=== PATIENT | male | born 1960 | race Caucasian/White ===

== ENCOUNTER → 2017-04-12 | Outpatient (CLI) | payer OTHER ==
[2017-04-12 13:17] LABS: ESTIMATED AVERAGE GLUCOSE 114 mg/dl; HA1C FLAG Normal (Normal)
[2017-04-12 14:28] LABS: ALT/SGPT 53 U/L (12-78); AST/SGOT 26 U/L (15-37); BLOOD UREA NITROGEN 13 mg/dl (7-18); BUN/CREATININE RATIO 13.8 (10-20); CALCIUM 9.1 mg/dl (8.5-10.1); CARBON DIOXIDE 29 mmol/L (21-32); CHLORIDE 105 mmol/L (98-107); CHOLESTEROL 174 mg/dl (0-200); CREATININE 0.93 mg/dl (0.60-1.40); GLUCOSE 96 mg/dl (70-99); POTASSIUM 4.4 mmol/L (3.5-5.1); SODIUM 139 mmol/L (136-145)
[2017-04-12 14:31] LABS: ALB/GLOB RATIO 1.3 (0.9-2); ALKALINE PHOSPHATASE 105 U/L (45-117); CHOLESTEROL/HDL RATIO 3.2; HDL CHOLESTEROL 55 mg/dl; LDL CHOLESTEROL CALCULATED 79 mg/dl; TRIGLYCERIDES 200 mg/dl (0-150); VERY LOW DENSITY LIPOPROT CALC 40 mg/dl
== END | disposition home or self-care (01) ==
LOC: C.LABBFT 08:05
PROVIDERS: ATTEND Internal Medicine
DX: R94.5 Abnormal results of liver function studies (principal)

== ENCOUNTER → 2017-07-20 | Outpatient (CLI) | payer BC, OTHER ==
[~2017-07-20] VITALS: Ht 185.4 cm; Wt 127.7 kg
[2017-07-20 13:55] VITALS: BP 158/92; PULSE 64; Ht 185.4 cm; Wt 127.7 kg
== END | disposition home or self-care (01) ==
LOC: C.NEUR 13:00
PROVIDERS: ATTEND Internal Medicine Pulmonary Disease
DX: G47.33 Obstructive sleep apnea (adult) (pediatric) (principal); E66.9 Obesity, unspecified; Z68.37 Body mass index [BMI] 37.0-37.9, adult

== ENCOUNTER → 2017-12-06 | Outpatient (CLI) | payer BC ==
[2017-12-06 12:41] LABS: BASO % 1.1 %; BASO ABS # 0.05 K/uL (0-0.2); EOS % 4.6 %; IG# 0.01 K/uL (0.00-0.02); LYMPH ABS # 1.66 K/uL (1.2-3.4); MEAN CELL VOLUME 89.2 fL (80-100); MEAN CORPUSCULAR HEMOGLOBIN 30.4 pg (25-34); MEAN CORPUSCULAR HGB CONC 34.1 g/dl (32-36); MEAN PLATELET VOLUME 9.3 fL (7.4-10.4); MONO % 8.9 %; MONO ABS # 0.39 K/uL (0.11-0.59); NEUT % 47.2 %; NEUT ABS # 2.06 K/uL (1.4-6.5); PLATELET COUNT 180 K/uL (130-400); RED CELL DISTRIBUTION WIDTH CV 13.6 % (11.5-14.5); RED CELL DISTRIBUTION WIDTH SD 44.3 fL (36.4-46.3); WHITE BLOOD COUNT 4.37 K/uL (4.8-10.8)
[2017-12-06 13:30] LABS: HEMOGLOBIN A1C 5.8 % (4.5-5.6)
[2017-12-06 13:46] LABS: ALBUMIN 4.2 gm/dl (3.4-5.0); ALT/SGPT 81 U/L (12-78); AST/SGOT 36 U/L (15-37); BLOOD UREA NITROGEN 17 mg/dl (7-18); CALCIUM 8.9 mg/dl (8.5-10.1); CARBON DIOXIDE 27 mmol/L (21-32); CREATININE 1.08 mg/dl (0.60-1.40); GLUCOSE 100 mg/dl (70-99); POTASSIUM 4.1 mmol/L (3.5-5.1); SODIUM 140 mmol/L (136-145)
[2017-12-06 13:48] LABS: ALKALINE PHOSPHATASE 93 U/L (45-117); CHOLESTEROL 182 mg/dl (0-200); LDL CHOLESTEROL CALCULATED 111 mg/dl; TOTAL PROTEIN 7.8 gm/dl (6.4-8.2)
== END | disposition home or self-care (01) ==
LOC: C.LABBFT 08:42
PROVIDERS: ATTEND Internal Medicine
DX: I10 Essential (primary) hypertension (principal); E78.5 Hyperlipidemia, unspecified; R73.9 Hyperglycemia, unspecified

== ENCOUNTER → 2018-05-30 | Outpatient (CLI) | payer BC ==
[2018-05-30 17:50] LABS: ALBUMIN 4.2 gm/dl (3.4-5.0); ALKALINE PHOSPHATASE 98 U/L (45-117); ALT/SGPT 58 U/L (12-78); AST/SGOT 28 U/L (15-37); BLOOD UREA NITROGEN 14 mg/dl (7-18); CALCIUM 8.9 mg/dl (8.5-10.1); CARBON DIOXIDE 25 mmol/L (21-32); CHOLESTEROL 131 mg/dl (0-200); CREATININE 0.94 mg/dl (0.60-1.40); GLUCOSE 89 mg/dl (70-99); LDL CHOLESTEROL CALCULATED 55 mg/dl; POTASSIUM 3.6 mmol/L (3.5-5.1); SODIUM 137 mmol/L (136-145); TOTAL PROTEIN 7.8 gm/dl (6.4-8.2)
[2018-05-30 18:22] LABS: BASO % 0.8 %; BASO ABS # 0.04 K/uL (0-0.2); EOS % 2.7 %; EOS ABS # 0.14 K/uL (0-0.5); HEMOGLOBIN 14.7 g/dL (14.0-18.0); IG# 0.01 K/uL (0.00-0.02); LYMPH ABS # 1.79 K/uL (1.2-3.4); MEAN CELL VOLUME 89.6 fL (80-100); MEAN CORPUSCULAR HEMOGLOBIN 30.6 pg (25-34); MEAN CORPUSCULAR HGB CONC 34.2 g/dl (32-36); MEAN PLATELET VOLUME 9.3 fL (7.4-10.4); MONO % 7.8 %; NEUT % 53.5 %; NEUT ABS # 2.73 K/uL (1.4-6.5); PLATELET COUNT 205 K/uL (130-400); RED CELL DISTRIBUTION WIDTH CV 13.9 % (11.5-14.5); RED CELL DISTRIBUTION WIDTH SD 45.5 fL (36.4-46.3); WHITE BLOOD COUNT 5.11 K/uL (4.8-10.8)
== END | disposition home or self-care (01) ==
LOC: C.LABBFT 12:04
PROVIDERS: ATTEND Internal Medicine
DX: N52.9 Male erectile dysfunction, unspecified (principal); I10 Essential (primary) hypertension; R79.89 Other specified abnormal findings of blood chemistry; E78.5 Hyperlipidemia, unspecified; D72.819 Decreased white blood cell count, unspecified

== ENCOUNTER 2020-06-14 09:48 | Inpatient (IN) ==
[2020-06-14] MEDS ORDERED: cefTRIAXone SODIUM 2,000 MG/70 ML BAG IV STA (11:12)
--- NOTE | 2020-06-14 11:17 | Emergency Department Note ---
Impression & Plan Cellulitis, Abscess, Fever ED Provider Note NAME: GARRETT ONEILL AGE: 59 SEX: M : 1960 ARRIVES VIA: Walk-In INFORMANT: Patient ED PROVIDER(S): David Proctor DO CHIEF COMPLAINT: Boil of right groin HPI: Patient is a 59-year-old male who presents the ER for fevers and right groin pain which has been present since Wednesday. The redness and the swelling has been getting significantly worse. Was seen via telehealth and placed on Bactrim. Took Bactrim for 2 days. Fevers as high as 102 Wednesday and . Patient denies any headache, cough runny nose. No loss of taste or smell. No chest pain or shortness of breath. No dysuria urgency or frequency. notes that the redness has been getting significantly worse since this started. ROS: See above HPI for pertinent positives & negatives. A total of 10 systems reviewed and were otherwise negative. PAST MEDICAL HISTORY:See Below PAST SURGICAL HISTORY:See Below FAMILY HISTORY:See Below SOCIAL HISTORY:See Below HOME MEDICATIONS:See Below ALLERGIES:See Below VITALS:See Below PHYSICAL EXAMINATION: GENERAL: Sitting up in bed, alert, well appearing, well nourished, no distress, non-toxic EYE EXAM: normal conjunctiva. OROPHARYNX: no exudate, no erythema, lips, buccal mucosa, and tongue normal and mucous membranes are moist NECK: supple, no nuchal rigidity, no adenopathy, non-tender LUNGS: Clear to auscultation. Normal chest wall mechanics HEART: no murmurs, S1 normal and S2 normal ABDOMEN: abdomen soft, non-tender, normo-active bowel sounds, no masses, no rebound or guarding. BACK: Back is symmetrical on inspection and there is no deformity, no midline tenderness, no CVA tenderness. SKIN: no rashes and no bruising UPPER EXTREMITIES: upper extremities are grossly normal. LOWER EXTREMITIES: Large abscess in the right groin with surrounding erythema tracking down to the right mid thigh and right Lower abdomen NEURO EXAM: Normal sensorium, cranial nerves II-XII grossly intact, normal speech, no gross weakness of arms, no gross weakness of legs. MEDICAL DECISION MAKING: Patient is a 59-year-old male who presents the ER with fevers that have been present for the past 2 days with high of 102. Complaining of her right groin pain and on exam has a clear abscess with surrounding cellulitis. Bedside ultrasound performed by myself shows focal abscess which is draining. Large amount of surrounding cellulitis. IV was established blood work was obtained.Labs show no significant leukocytosis or anemia. BMP with LFTs bilirubin and lipase was unremarkable. Patient had been on Bactrim as an outpatient for nearly 2 days. Redness was worsening. With fevers, worsening redness clear abscess I did remove a large amount of pus from the abscess by squeezing/applying pressure. Patient tolerated this well. He was given 2 g of IV Rocephin along with IV fluids. Updated bedside. Discussed with hospitalist for admission. Triage Nursing notes reviewed. Prior medical records reviewed Vital Signs: reviewed and remarkable for no significant abnormalities Differential diagnosis: Cellulitis, abscess, MRSA infection, DVT, necrotizing fasciitis, dermatitis, drug eruption, allergic reaction, as well as other pathologies. ER treatment provided: See below Diagnostics interpreted by me: ECG: none Cardiac Monitoring: An order was placed for continuous cardiac monitoring. The monitor shows a rate of 85 with sinus rhythm. Laboratory studies: As stated above and show below. Imaging studies: Bedside ultrasound performed by myself showed a small focal abscess which was draining on exam Consultation(s): Janes with hospitalist for admission. ED COURSE: Procedures: none Critical Care: None Past Med/Surg History Medical History (Updated 06/14/20 @ 17:16 by David Proctor DO) Pneumonia Surgical History (Updated 11/08/19 @ 08:57 by Brea Monson) History of elbow surgery History of left knee surgery History of shoulder surgery right Family History (Updated 11/08/19 @ 09:31 by Que Denson MD) Father Cancer Unknown origin Denies family history of Ovarian cancer Prostate cancer Myocardial infarction Breast cancer Colorectal cancer Social History (Updated 11/08/19 @ 09:32 by Que Denson MD) Smoking Status: Former smoker Age Started Using Tobacco: 17; Age Quit Using Tobacco: 30; Cigarettes Per Day: patient did smoke daily. Used occasionally for 6 months; Number of Years Since Quit: 29; Second Hand Exposure: No; Tobacco Cessation Education Requested by Patient: No Hx Alcohol Use: Yes Alcohol type: beer Alcohol Intake Frequency Comment: A pproximately 6 pack of beer per week Hx Substance Use: No Preferred Language: Yoruba Communication Ability: Effective Visual Impairment: No Limitations Hearing Ability: Normal Beliefs That Will Affect Care: None marital status: Current Living Situation: Spouse current occupational status: employed Other Information That Helps Us Care for You: No Feels Safe at Home: Yes Safety Concerns: Feels Safe At This Time Childhood Exposure to Second-Hand Smoke: Yes Dental Care, Regularly: Yes Physical Activity Frequency: 3-4 Times per Week Allergies Allergies Allergy/AdvReac Type Severity Reaction Status Date / Time No Known Drug Allergies Allergy . Verified 06/14/20 12:52 Home Meds Home Medications Medication Instructions Recorded Confirmed aspirin 81 mg tablet,delayed 81 mg PO QAM 11/08/19 06/14/20 release acetaminophen [Tylenol Extra 1,000 mg PO Q6H PRN 06/14/20 06/14/20 Strength] hydrochlorothiazide 25 mg PO QAM 06/14/20 06/14/20 irbesartan 300 mg PO QAM 06/14/20 06/14/20 tadalafil [Cialis] 20 mg PO PM PRN 06/14/20 06/14/20 vit C-vit [id number]-[id number]-om-3 1 cap PO QAM 06/14/20 06/14/20 [Ocuvite] Previous Rx's Medication Instructions Recorded atorvastatin 20 mg tablet 20 mg PO HS #90 tab 06/03/20 sulfamethoxazole 800 1 tab PO BID #14 tab 06/13/20 mg-trimethoprim 160 mg tablet Results & Data (ED) Vital Signs Vital Signs - 24 hr 06/14/20 10:04 06/14/20 11:33 06/14/20 13:01 Temperature 37.1 C Temperature Source Oral Pulse Rate 84 Pulse Rate [Apical] 80 78 Respiratory Rate 20 24 20 Blood Pressure 149/79 H Blood Pressure [Left Arm] 134/79 131/87 Blood Pressure Mean 102 Blood Pressure Mean [Left Arm] 97 101 Pulse Oximetry 99 97 97 Oxygen Delivery Method Room Air Room Air Room Air Sepsis Recent Fever Within 48 Hours No Sepsis New/Unexplained Change in Mental Status No Sepsis Action Taken by Nursing No Action Required Laboratory Data Result diagrams: 06/14/20 11:25 06/14/20 11:25 Lab Results 06/14/20 06/14/20 Range/Units 11:25 11:25 WBC 8.43 (4.8-10.8) K/uL RBC 4.65 L (4.7-6.1) M/uL Hgb 14.0 (14.0-18.0) g/dL Hct 41.5 L (42-52) % MCV 89.2 (80-100) fL MCH 30.1 (25-34) pg MCHC 33.7 (32-36) g/dL RDW Std Deviation 45.3 (36.4-46.3) fL RDW Coeff of Nelson 13.8 (11.5-14.5) % Plt Count 185 (130-400) K/uL MPV 9.0 (7.4-10.4) fL Immature Gran % (Auto) 0.2 % Neut % (Auto) 76.8 % Lymph % (Auto) 13.8 % Hart % (Auto) 8.7 % Eos % (Auto) 0.4 % Baso % (Auto) 0.1 % Neut # (Auto) 6.48 (1.4-6.5) K/uL Lymph # (Auto) 1.16 L (1.2-3.4) K/uL Hart # (Auto) 0.73 H (0.11-0.59) K/uL Eos # (Auto) 0.03 (0-0.5) K/uL Baso # (Auto) 0.01 (0-0.2) K/uL Immature Gran # (Auto) 0.02 (0.00-0.02) K/uL Sodium 139 (136-145) mmol/L Potassium 3.8 (3.5-5.1) mmol/L Chloride 105 (98-107) mmol/L Carbon Dioxide 27 (21-32) mmol/L Anion Gap 7.0 (3-11) BUN 14 (7-18) mg/dl Creatinine 1.03 (0.6-1.4) mg/dl Est Cr Clr Drug Dosing 110.1 ml/min Est GFR ( Amer) 91.7 Est GFR (Non-Af Amer) 79.1 BUN/Creatinine Ratio 13.7 (10-20) Glucose 117 H (70-99) mg/dl Calcium 9.2 (8.5-10.1) mg/dl Total Bilirubin 0.7 (0.2-1) mg/dl AST 15 (15-37) U/L ALT 32 (12-78) U/L Alkaline Phosphatase 82 (45-117) U/L Total Protein 7.9 (6.4-8.2) gm/dl Albumin 3.8 (3.4-5.0) gm/dl Globulin 4.1 H (2.5-4.0) gm/dl Albumin/Globulin Ratio 0.9 (0.9-2) Lipase 87 (73-393) U/L Administered Medications Discontinued Medications Ceftriaxone Sodium (Rocephin) 2,000 mg in 70 mls @ 140 mls/hr IV NOW STA Stop: 06/14/20 11:41 Last Infusion: 06/14/20 11:58 Dose: 0 mls/hr Documented by: [id number] Admin: 06/14/20 11:28 Dose: 140 mls/hr Documented by: [id number] Piperacillin Sod/Tazobactam (Sod 4.5 gm/ Dextrose) 120 mls @ 200 mls/hr IV 1430 ONE; Protocol Stop: 06/14/20 15:05 Last Infusion: 06/14/20 16:24 Dose: 0 mls/hr Documented by: [id number] Admin: 06/14/20 15:46 Dose: 200 mls/hr Documented by: [id number] Discharge Plan Visit Data Chief Complaint: Infection Stated Complaint: INFECTED BOIL ED Provider: David Proctor Discharge Problem: Cellulitis, Abscess, Fever Patient Disposition: Admitted As Inpatient Discharge Instructions Interventions: ED Discharge Assessment Last Done: 06/14/20 13:42 Discharge Problem: Cellulitis Qualifiers: Site of cellulitis: unspecified site Qualified Code(s): L03.90 - Cellulitis, unspecified Fever Qualifiers: Fever type: unspecified Qualified Code(s): R50.9 - Fever, unspecified
[2020-06-14 11:38] LABS: Basophils # (auto) 0.01 K/uL (0-0.2); Basophils % (auto) 0.1 %; Eosinophils # (auto) 0.03 K/uL (0-0.5); Eosinophils % (auto) 0.4 %; Hematocrit (blood only) 41.5 % (42-52); Immature Granulocytes # (auto) 0.02 K/uL (0.00-0.02); Immature Granulocytes % (auto) 0.2 %; Lymphocytes # (auto) 1.16 K/uL (1.2-3.4); Lymphocytes % (auto) 13.8 %; Mean Corpuscular Hemoglobin 30.1 pg (25-34); Mean Corpuscular Hgb Conc 33.7 g/dL (32-36); Mean Corpuscular Volume 89.2 fL (80-100); Monocytes # (auto) 0.73 K/uL (0.11-0.59); Monocytes % (auto) 8.7 %; Neutrophils # (auto) 6.48 K/uL (1.4-6.5); Neutrophils % (auto) 76.8 %; Platelet Count 185 K/uL (130-400); RDW Coefficient of Variation 13.8 % (11.5-14.5); RDW Standard Deviation 45.3 fL (36.4-46.3); Red Blood Count 4.65 M/uL (4.7-6.1); White Blood Count 8.43 K/uL (4.8-10.8)
[2020-06-14 11:55] LABS: Albumin Level 3.8 gm/dl (3.4-5.0); BUN Creatinine Ratio 13.7 (10-20); Calcium 9.2 mg/dl (8.5-10.1); Creatinine Clr Calc Pharmacy 110.1 ml/min; Est GFR (African American) 91.7; Est GFR (Non-African American) 79.1; Potassium 3.8 mmol/L (3.5-5.1)
[2020-06-14 11:58] LABS: Albumin Globulin Ratio 0.9 (0.9-2); Bilirubin,Total 0.7 mg/dl (0.2-1); Globulin 4.1 gm/dl (2.5-4.0); Total Protein 7.9 gm/dl (6.4-8.2)
--- NOTE | 2020-06-14 13:00 | History & Physical Report ---
Date of Service June 14, 2020 Assessment & Plan (1) Abscess of right thigh: Patient managed from our contact or previous problems such as this. He is doing Bactrim for a day and a half despite this he still having fevers and chills. He currently has no leukocytosis but he did have some spontaneous drainage of liquid however the wound is since resealed. I did express some purulence will place him on Zosyn a surgical consultation be undertaken to determine whether an I&D would be indicated. Certainly further imaging could also be undertaken as he has had no imaging. Interestingly he had a COVID test performed on the which is resulted negative due to recent travel (2) Obstructive sleep apnea: Patient requests to bring in his own sleep apnea machine which will be preventative (3) Prediabetes: Patient's recent A1c was 6.1 currently on no medication (4) Hypertension: Patient continue a regular Oralia hydrochlorothiazide for blood pressure control he is also on aspirin for cardiovascular risk reduction (5) Hyperlipemia: Patient is maintained on atorvastatin 20 (6) DVT prophylaxis: Patient is on SCDs are now in case he would need further surgical intervention if not he will be placed on chemoprophylaxis for DVT prevention History of Present Illness Primary Care Provider: Randal Denson MD 59-year-old male who presents the ER for fevers and right groin pain which is been present since Wednesday. The redness and the swelling has been getting significantly worse. Was seen via telehealth and placed on Bactrim. Took Bactrim for 2 days. Fevers as high as 102 Wednesday and . Outpatient covid testing due to travel this is resulted negative on 12 June. The patient denies any trauma to the affected area, he has had no headache, cough runny nose. No loss of taste or smell. No chest pain or shortness of breath. No dysuria urgency or frequency. notes that the redness has been getting significantly worse since this started. Allergies Allergy/AdvReac Type Severity Reaction Status Date / Time No Known Drug Allergies Allergy . Verified 06/14/20 12:52 Home Medications Home Medications Medication Instructions Recorded Confirmed Type aspirin 81 mg tablet,delayed 81 mg PO QAM 11/08/19 06/14/20 History release atorvastatin 20 mg tablet 20 mg PO HS #90 tab 06/03/20 06/14/20 Rx sulfamethoxazole 800 1 tab PO BID #14 tab 06/13/20 06/14/20 Rx mg-trimethoprim 160 mg tablet acetaminophen [Tylenol Extra 1,000 mg PO Q6H PRN 06/14/20 06/14/20 History Strength] hydrochlorothiazide 25 mg PO QAM 06/14/20 06/14/20 History irbesartan 300 mg PO QAM 06/14/20 06/14/20 History tadalafil [Cialis] 20 mg PO PM PRN 06/14/20 06/14/20 History vit C-vit I-gwmjnl-hnk-om-3 1 cap PO QAM 06/14/20 06/14/20 History [Ocuvite] Past Med/Surg History Medical History (Updated 06/14/20 @ 13:28 by Higinio Cleveland MD) Pneumonia Surgical History (Updated 11/08/19 @ 08:57 by Brea Monson) History of elbow surgery History of left knee surgery History of shoulder surgery right Family History (Updated 11/08/19 @ 09:31 by Que Denson MD) Father Cancer Unknown origin Denies family history of Ovarian cancer Prostate cancer Myocardial infarction Breast cancer Colorectal cancer Social History (Updated 11/08/19 @ 09:32 by Que Denson MD) Smoking Status: Former smoker Age Started Using Tobacco: 17; Age Quit Using Tobacco: 30; Cigarettes Per Day: patient did smoke daily. Used occasionally for 6 months; Number of Years Since Quit: 29; Second Hand Exposure: No; Hx Alcohol Use: Yes Alcohol type: beer and hard liquor Alcohol Intake Frequency Comment: Approximately 6 pack of beer per week Hx Substance Use: No Preferred Language: Chadian Visual Impairment: No Limitations Hearing Ability: Normal marital status: Current Living Situation: Spouse current occupational status: employed Feels Safe at Home: Yes Childhood Exposure to Second-Hand Smoke: Yes Dental Care, Regularly: Yes Physical Activity Frequency: 3-4 Times per Week Review of Systems Review of Systems: Mild distress and fatigue no headache, blurry or double vision no speech or swallowing issues no chest pain, pressure or palpitations no shortness of breath, cough or wheezes no abdominal pain, nausea or vomiting, diarrhea or constipation no dysuria, hematuria or frequency no focal joint pain or swelling no back pain, CVA tenderness or radicular pain Bending redness to his right anterior thigh with some drainage of pus no focal signs of weakness or numbness or altered sensation no complaints or anxiety or depression. Physical Exam Physical Exam: The patient appeared well nourished and normally developed. Vital signs as documented. Head exam is normocephalic atraumatic no scleral icterus Neck is without JVD, thyromegaly, or carotid bruits. Lungs are clear to auscultation, no focal loss of breath sounds Cardiac exam, Rhythm is regular.. No murmurs, rubs or gallops. Abdominal exam reveals normal bowel sounds, soft non tender, no masses Extremities are nonedematous and both pedal pulses are normal. Neurologic exam is alert and oriented, no focal loss of strength or sensation Skin area of erythema and induration to his anterior right thigh medially there was some chocolatey liquid expressed which was sent for culture Psychologically is without concerns for anxiety or depression. Results & Data Results & Data ([facility]) Vital Signs (Past 12 Hours) Vital Signs Temp Pulse Pulse Resp BP BP Pulse Ox 06/14/20 11:33 80 24 134/79 97 06/14/20 10:04 98.8 F 84 20 149/79 H 99 PG Care Time/CCT Total # of Minutes Spent Total Time Spent with Patient: Total time spent is greater than 50% in coordination of care (as documented) at patient's floor/unit and/or counseling patient: Coding Level of Care Code 69267 OBS Care - Level 3 Diagnoses Abscess of right thigh L02.415 Obstructive sleep apnea G47.33 Prediabetes R73.03 Hypertension I10 Hyperlipemia E78.5 DVT prophylaxis Z29.9
[2020-06-14] MEDS ORDERED: ACETAMINOPHEN 500 MG TAB PO PRN (13:56)
[2020-06-14] MEDS ORDERED: PIPERACILL/TAZOBAC CONSULT ACTIVE PRN (13:56)
[2020-06-14] MEDS ORDERED: ONDANSETRON INJ 2 MG/ML 2 ML VIAL IV PRN (13:56)
[2020-06-14] MEDS ORDERED: PIPERACILLIN/TAZOBACTAM 4.5 GM in DEXTROSE 5% 100 ML IV ONE (14:30)
--- NOTE | 2020-06-14 17:16 | Surgery Consultation ---
Date of Consultation June 14, 2020 Assessment & Plan (1) Abscess of right thigh: pt bis a 59 year-old male who was admitted to hospital for right thigh abscess, IMP: right thigh abscess Plan, I recommend to do I/D right thigh abscess, D/W benefits, risks and alternatives of the surgery, the risks - infection, bleeding, sepsis, pt understood, he agrees with the surgery, I answered all questions, continue iv antibiotic, npo after MN History of Present Illness Attending Physician: Higinio Cleveland MD History of Present Illness Primary Care Provider: Randal Denson MD 59-year-old male who presents the ER for fevers and right groin pain which is been present since Wednesday. The redness and the swelling has been getting significantly worse. Was seen via telehealth and placed on Bactrim. Took Ba ctrim for 2 days. Fevers as high as 102 Wednesday and . Outpatient covid testing due to travel this is resulted negative on 12 June. The patient denies any trauma to the affected area, he has had no headache, cough runny nose. No loss of taste or smell. No chest pain or shortness of breath. No dysuria urgency or frequency. notes that the redness has been getting significantly worse since this started. I ( Jessy Gold MD ) got a call for consult right thigh abscess, I reviewed pt's H/P, labs, with pt, Allergies Allergy/AdvReac Type Severity Reaction Status Date / Time No Known Drug Allergies Allergy . Verified 06/14/20 12:52 Home Medications Home Medications Medication Instructions Recorded Confirmed Type aspirin 81 mg tablet,delayed 81 mg PO QAM 11/08/19 06/14/20 History release atorvastatin 20 mg tablet 20 mg PO HS #90 tab 06/03/20 06/14/20 Rx sulfamethoxazole 800 1 tab PO BID #14 tab 06/13/20 06/14/20 Rx mg-trimethoprim 160 mg tablet acetaminophen [Tylenol Extra 1,000 mg PO Q6H PRN 06/14/20 06/14/20 History Strength] hydrochlorothiazide 25 mg PO QAM 06/14/20 06/14/20 History irbesartan 300 mg PO QAM 06/14/20 06/14/20 History tadalafil [Cialis] 20 mg PO PM PRN 06/14/20 06/14/20 History vit C-vit O-gnnapf-[id number]-om-3 1 cap PO QAM 06/14/20 06/14/20 History [Ocuvite] Past Med/Surg History Medical History (Updated 06/14/20 @ 13:28 by Higinio Cleveland MD) Pneumonia Surgical History (Updated 11/08/19 @ 08:57 by Brea Monson) History of elbow surgery History of left knee surgery History of shoulder surgery right Family History (Updated 11/08/19 @ 09:31 by Que Denson MD) Father Cancer Unknown origin Denies family history of Ovarian cancer Prostate cancer Myocardial infarction Breast cancer Colorectal cancer Social History (Updated 11/08/19 @ 09:32 by Que Denson MD) Smoking Status: Former smoker Age Started Using Tobacco: 17; Age Quit Using Tobacco: 30; Cigarettes Per Day: patient did smoke daily. Used occasionally for 6 months; Number of Years Since Quit: 29; Second Hand Exposure: No; Hx Alcohol Use: Yes Alcohol type: beer and hard liquor Alcohol Intake Frequency Comment: Approximately 6 pack of beer per week Hx Substance Use: No Preferred Language: Divehi Visual Impairment: No Limitations Hearing Ability: Normal marital status: Current Living Situation: Spouse current occupational status: employed Feels Safe at Home: Yes Childhood Exposure to Second-Hand Smoke: Yes Dental Care, Regularly: Yes Physical Activity Frequency: 3-4 Times per Week Review of Systems Review of Systems: Mild distress and fatigue no headache, blurry or double vision no speech or swallowing issues no chest pain, pressure or palpitations no shortness of breath, cough or wheezes no abdominal pain, nausea or vomiting, diarrhea or constipation no dysuria, hematuria or frequency no focal joint pain or swelling no back pain, CVA tenderness or radicular pain Bending redness to his right anterior thigh with some drainage of pus no focal signs of weakness or numbness or altered sensation no complaints or anxiety or depression. Allergies Allergy/AdvReac Type Severity Reaction Status Date / Time No Known Drug Allergies Allergy . Verified 06/14/20 12:52 Home Medications Home Medications Medication Instructions Recorded Confirmed Type aspirin 81 mg tablet,delayed 81 mg PO QAM 11/08/19 06/14/20 History release atorvastatin 20 mg tablet 20 mg PO HS #90 tab 06/03/20 06/14/20 Rx sulfamethoxazole 800 1 tab PO BID #14 tab 06/13/20 06/14/20 Rx mg-trimethoprim 160 mg tablet acetaminophen [Tylenol Extra 1,000 mg PO Q6H PRN 06/14/20 06/14/20 History Strength] hydrochlorothiazide 25 mg PO QAM 06/14/20 06/14/20 History irbesartan 300 mg PO QAM 06/14/20 06/14/20 History tadalafil [Cialis] 20 mg PO PM PRN 06/14/20 06/14/20 History vit C-vit Z-njkbct-uzo-om-3 1 cap PO QAM 06/14/20 06/14/20 History [Ocuvite] Patient History Medical History (Updated 06/14/20 @ 13:28 by Higinio Cleveland MD) Pneumonia Surgical History (Updated 11/08/19 @ 08:57 by Brea Monson) History of elbow surgery History of left knee surgery History of shoulder surgery right Family History (Updated 11/08/19 @ 09:31 by Que Denson MD) Father Cancer Unknown origin Denies family history of Ovarian cancer Prostate cancer Myocardial infarction Breast cancer Colorectal cancer Social History (Updated 11/08/19 @ 09:32 by Que Denson MD) Smoking Status: Former smoker Age Started Using Tobacco: 17; Age Quit Using Tobacco: 30; Cigarettes Per Day: patient did smoke daily. Used occasionally for 6 months; Number of Years Since Quit: 29; Second Hand Exposure: No; Tobacco Cessation Education Requested by Patient: No Hx Alcohol Use: Yes Alcohol type: beer Alcohol Intake Frequency Comment: Approximately 6 pack of beer per week Hx Substance Use: No Preferred Language: Divehi Communication Ability: Effective Visual Impairment: No Limitations Hearing Ability: Normal Beliefs That Will Affect Care: None marital status: Current Living Situation: Spouse current occupational status: employed Other Information That Helps Us Care for You: No Feels Safe at Home: Yes Safety Concerns: Feels Safe At This Time Childhood Exposure to Second-Hand Smoke: Yes Dental Care, Regularly: Yes Physical Activity Frequency: 3-4 Times per Week Review of Systems Review of Systems: All systems reviewed & are unremarkable except as noted in HPI & below Constitutional: as per Subjective / HPI obesity Eyes: as per Subjective / HPI Ear, Nose, Mouth, Throat: as per Subjective / HPI Respiratory: obstructive sleep apnea Cardiovascular: as per Subjective / HPI Additional Comments: HTN, hyperlipidemia Gastrointestinal: as per Subjective / HPI colon polyp Genitourinary: + as per Subjective / HPI Musculoskeletal: as per Subjective / HPI Integumentary: as per Subjective / HPI Neurologic: as per Subjective / HPI Psychiatric: as per Subjective / HPI Endocrine: as per Subjective / HPI Hematologic / Lymphatic: as per Subjective / HPI Allergy / Immunological: as per Subjective / HPI Physical Exam Constitutional: WD/WN, vitals as above well developed and well nourished Eyes: PERRL, conjunctivae normal, anicteric sclerae ENMT: external ear and nose normal, oropharynx normal Neck: trachea midline, no thyromegaly Respiratory: normal respiratory effort, lungs clear to auscultation Cardiovascular: RRR, no murmur, no edema Rate/Rhythm: regular rate, regular rhythm and + bradycardic Heart Sounds: normal S1 and normal S2 Gastrointestinal (Abdomen): normal bowel sounds, soft, nontender, no hepatosplenomegaly Musculoskeletal: no cyanosis or clubbing, extremities motor strength 5/5 Skin: right thigh redness, tenderness, no drainage, size [id number], Neurologic: patellar DTR's 2+ bilat, sensation intact Psychiatric: Orientation: alert and oriented x 3 Results & Data ([facility]) Vital Signs (Past 12 Hours) Vital Signs Temp Pulse Pulse Pulse Resp BP BP 06/14/20 15:38 36.8 C 84 16 116/57 L 06/14/20 14:02 37.1 C 78 16 169/91 H 06/14/20 13:56 37.1 C 78 18 169/91 H 06/14/20 13:01 78 20 131/87 06/14/20 11:33 80 24 134/79 06/14/20 10:04 37.1 C 84 20 149/79 H Pulse Ox 06/14/20 15:38 95 06/14/20 14:02 98 06/14/20 13:56 99 06/14/20 13:01 97 06/14/20 11:33 97 06/14/20 10:04 99 Laboratory Results Abnormal lab results 06/14/20 06/14/20 Range/Units 11:25 11:25 RBC 4.65 L (4.7-6.1) M/uL Hct 41.5 L (42-52) % Lymph # (Auto) 1.16 L (1.2-3.4) K/uL Cannon # (Auto) 0.73 H (0.11-0.59) K/uL Glucose 117 H (70-99) mg/dl Globulin 4.1 H (2.5-4.0) gm/dl
[2020-06-14] MEDS: PIPERACILLIN/TAZOBACTAM 4.5 GM in DEXTROSE 5% 100 ML IV SCH ×2 (20:50→20:55)
[2020-06-14] MEDS: CIPROFLOXACIN HCL 0.3% OP SOLN 2.5 ML BTL OP SCH (20:50)
[2020-06-14] MEDS: ATORVASTATIN 20 MG TAB PO SCH (20:57)
[2020-06-15] MEDS: PIPERACILLIN/TAZOBACTAM 4.5 GM in DEXTROSE 5% 100 ML IV SCH ×3 (04:13→20:57)
[2020-06-15 06:34] LABS: Hematocrit (blood only) 41.2 % (42-52); Hemoglobin 13.2 g/dL (14.0-18.0); Mean Corpuscular Hemoglobin 29.3 pg (25-34); Mean Corpuscular Volume 91.4 fL (80-100); Mean Platelet Volume 9.3 fL (7.4-10.4); Platelet Count 199 K/uL (130-400); RDW Standard Deviation 47.4 fL (36.4-46.3); Red Blood Count 4.51 M/uL (4.7-6.1); White Blood Count 6.22 K/uL (4.8-10.8)
[2020-06-15 07:01] LABS: BUN Creatinine Ratio 11.3 (10-20); Calcium 9.4 mg/dl (8.5-10.1); Creatinine Clr Calc Pharmacy 97.8 ml/min; Est GFR (African American) 79.4; Est GFR (Non-African American) 68.5
--- NOTE | 2020-06-15 07:20 | Anesthesiology Consultation ---
Date of Service June 15, 2020 Assessment & Plan (1) Encounter for pre-operative examination: Chart Review Chart Review: Acceptable Risk for Surgery History Surgery Operation Date: 06/15/20 11:50 Proposed Procedures p Right Thigh Abscess Incision and Drainage - Jessy Gold MD Height/Weight Height: 6 ft 1 in Weight: 132.243 kg Allergies Allergy/AdvReac Type Severity Reaction Status Date / Time No Known Drug Allergies Allergy . Verified 06/14/20 12:52 Medications Home Medications Medication Instructions Recorded Confirmed Last Taken aspirin 81 mg tablet,delayed 81 mg PO QAM 11/08/19 06/14/20 06/14/20 release atorvastatin 20 mg tablet 20 mg PO HS #90 tab 06/03/20 06/14/20 06/13/20 sulfamethoxazole 800 1 tab PO BID #14 tab 06/13/20 06/14/20 06/14/20 mg-trimethoprim 160 mg tablet acetaminophen [Tylenol Extra 1,000 mg PO Q6H PRN 06/14/20 06/14/20 06/14/20 04:00 Strength] hydrochlorothiazide 25 mg PO QAM 06/14/20 06/14/20 06/14/20 irbesartan 300 mg PO QAM 06/14/20 06/14/20 06/14/20 tadalafil [Cialis] 20 mg PO PM PRN 06/14/20 06/14/20 Unknown vit C-vit [id number]-om-3 1 cap PO QAM 06/14/20 06/14/20 06/11/20 [Ocuvite] Active Medications Generic Name Dose Route Start Last Admin Trade Name Freq PRN Reason Stop Dose Admin Atorvastatin Calcium 20 mg 06/14/20 21:00 06/14/20 20:57 Atorvastatin 20 Mg Tab PO 07/14/20 20:59 20 mg HS MARIA C Administration Ciprofloxacin 2 drops 06/14/20 21:00 06/14/20 20:50 Ciprofloxacin Hcl 0.3% Op Soln 2.5 Ml Btl OP 06/24/20 20:59 2 drops BID MARIA C Administration Piperacillin Sod/Tazobactam 120 mls @ 30 mls/hr 06/14/20 20:00 06/15/20 04:13 Sod 4.5 gm/ Dextrose IV 06/21/20 19:59 30 mls/hr Q8H MARIA C Administration Protocol NPO Date Last Intake of Fluids: 06/15/20 Time Last Intake of Fluids: 00:00 Date Last Intake of Solids: 06/15/20 Time Last Intake of Solids: 00:00 Past Medical History Medical History (Updated 06/15/20 @ 07:20 by Nahid Jamil MD) Gout Hyperlipemia Hypertension Obesity Obstructive sleep apnea Pneumonia Prediabetes Past Family History Family History Father Cancer Unknown origin Denies family history of Ovarian cancer Prostate cancer Myocardial infarction Breast cancer Colorectal cancer Past Surgical History Surgical History History of elbow surgery History of left knee surgery History of shoulder surgery right Social History Smoking Status: Former smoker tobacco type: cigarettes Smoking cigarettes per day: patient did smoke daily. Used occasionally for 6 months Hx Alcohol Use: Yes Alcohol type: beer alcohol intake frequency: 0-2 drinks per day Hx Substance Use: No Physical Exam Vital Signs Last Vital Signs Temp 37.0 C 06/14/20 23:37 Pulse 74 06/14/20 23:37 Resp 16 06/14/20 23:37 BP 156/86 H 06/14/20 23:37 Pulse Ox 93 06/14/20 23:37 Testing Laboratory Results 06/15/20 06:00 06/15/20 06:00 Echocardiogram Date: 11/17/19 EF: 55-60 LV Function: normal Valvular Disease: + no significant valvular disease
[2020-06-15] MEDS: CIPROFLOXACIN HCL 0.3% OP SOLN 2.5 ML BTL OP SCH ×2 (07:41→21:01)
[2020-06-15] MEDS: IRBESARTAN 150 MG TAB PO SCH (08:28)
[2020-06-15] MEDS: hydroCHLOROthiazide 25 MG TAB PO SCH (08:29)
[2020-06-15] MEDS: ASPIRIN 81 MG ECTAB PO SCH (08:29)
[2020-06-15] MEDS ORDERED: ATROPINE SULFATE 0.1 MG/ML 10ML SYR IV PRN (08:32)
[2020-06-15] MEDS ORDERED: ONDANSETRON INJ 2 MG/ML 2 ML VIAL IV PRN (08:32)
[2020-06-15] MEDS ORDERED: LABETALOL HCL IV 5 MG/ML 20ML IV PRN (08:32)
[2020-06-15] MEDS ORDERED: fentaNYL citrate 100 MCG/2 ML VIAL IV PRN (08:32)
--- NOTE | 2020-06-15 08:41 | History & Physical Bridge Note ---
Date of Service June 15, 2020 History & Physical Bridge Note I have examined the patient, reviewed the History & Physical and in the interval since the performance of the History & Physical I have noted the following changes of clinical significance: no changes noted
[2020-06-15] MEDS ORDERED: LIDOCAINE HCL 2% 2 ML VIAL/AMP(20MG/ML) INFIL ONE (08:49)
[2020-06-15] MEDS ORDERED: MIDAZOLAM HCL 1 MG/ML 2ML VIAL ONE ×2 (08:49→09:07)
[2020-06-15] MEDS ORDERED: PROPOFOL IV EMULSION 10 MG/ML 20 ML VIAL IV ONE (08:50)
[2020-06-15] MEDS ORDERED: ONDANSETRON INJ 2 MG/ML 2 ML VIAL ONE (08:50)
[2020-06-15] MEDS ORDERED: fentaNYL citrate 100 MCG/2 ML VIAL ONE (08:50)
[2020-06-15] MEDS ORDERED: BUPIVACAINE 0.5 % 5 MG/1 ML MPF 30ML VIAL ONE (08:51)
[2020-06-15] MEDS ORDERED: BACITRACIN OINT 15 GM TUBE ONE (08:51)
[2020-06-15] MEDS ORDERED: LIDOCAINE HCL 1% 20 ML VIAL ONE (08:51)
[2020-06-15] MEDS ORDERED: DAPTOMYCIN CONSULT ACTIVE PRN (09:09)
--- NOTE | 2020-06-15 09:25 | Post Operative Brief Note ---
Immediate Post Op Note v1 Date of Surgery June 15, 2020 Pre & Post Diagnosis Operation Date: 06/15/20 11:50 pre-op diagnosis: right thigh abscess post-op diagnosis: right thigh abscess I identified the patient and participated in the time-out.: Yes Procedure Operation Date: 06/15/20 11:50 incision and drainage right thigh abscess Surgeon Jessy Gold MD Public Relations Writer surgical territory manager Estimated Blood Loss 5 Findings Consistent with Post-Op Diagnosis large right thigh abscess deep to muscle layer Fluids 600ml Specimens wound culture Drains Other (packing the wound) Anesthesia Type Local Complications none Disposition Accompanied Patient To Recovery: Yes Disposition: Recovery Room Overlapping Procedure I was immediately available: during the entire case.
--- NOTE | 2020-06-15 10:00 | Operative Report (OR) ---
DATE OF OPERATION: 06/15/2020 PREOPERATIVE DIAGNOSIS: Right thigh abscess. POSTOPERATIVE DIAGNOSIS: Right thigh abscess. PROCEDURE: Incision and drainage of the right thigh abscess. SURGEON: Jessy Gold MD. ANESTHESIA: Conscious sedation plus local. ESTIMATED BLOOD LOSS: About 5 mL FINDINGS: Right thigh large abscess deep to muscle layer. Wound culture sent. COMPLICATIONS: None. INDICATIONS FOR THE PROCEDURE: This is a 59-year-old gentleman who was admitted to hospital for right thigh abscess and I recommend to do the I and D, right thigh abscess. I did talk to the patient about the benefit, the risk, alternate procedure. I indicated the risks may include but not limited to such as bleeding, infection, recurrence, sepsis. The patient understands. He signed informed consent and I answered all questions. DETAILS OF PROCEDURE: We brought the patient to the OR, put the patient in the supine position. The patient received SCD on bilateral legs to prevent DVT. Also, patient received 3.375 grams Zosyn IV for prophylactic antibiotic. The patient received conscious sedation by the Anesthesiology. The right side was prepped and draped in routine sterile fashion. After timeout, I injected local anesthesia by using 1% lidocaine mixed with 0.5% Marcaine on the right side. I then made about a 3 cm incision on the abscess on the right side, the pus came out immediately. We sent the wound culture and then we cleaned all of the pus. The abscess was deep to the muscle layer. Once we cleaned up all the pus. We packed with Kerlix and then we put the dressing on. Hemostasis was obtained. Once we put the dressing on and the patient transferred to recovery room in stable condition, the specimen sent to wound culture and the patient tolerated the procedure well. All instrument, needle and sponge count were correct x2 at the end of the case. I attest to the content of the Intraoperative Record and any orders documented therein. Any exception s are noted below.
[2020-06-15] MEDS ORDERED: NON-FORMULARY MEDICATION (Tadalafil [Cialis] 20 MG) PO PRN (10:08)
[2020-06-15] MEDS: DAPTOmycin 400 MG in SYRINGE 0 ML IV SCH (10:09)
--- NOTE | 2020-06-15 11:17 | Anesthesiology Progress Note ---
Date of Service June 15, 2020 Anesthesia Post Procedure Vital Signs Vital Signs: Temp Pulse Pulse Pulse Resp BP Pulse Ox 06/15/20 11:10 36.6 C 68 18 148/82 H 96 06/15/20 10:37 36.6 C 65 16 134/76 95 06/15/20 10:10 36.6 C 72 18 138/75 95 06/15/20 09:45 67 20 133/81 97 06/15/20 09:38 36.4 C L 77 18 125/62 97 06/15/20 08:09 36.8 C 68 18 146/82 H 94 06/14/20 23:37 37.0 C 74 16 156/86 H 93 06/14/20 15:38 36.8 C 84 16 116/57 L 95 06/14/20 14:02 37.1 C 78 16 169/91 H 98 06/14/20 13:56 37.1 C 78 18 169/91 H 99 06/14/20 13:01 78 20 131/87 97 06/14/20 11:33 80 24 134/79 97 Transfer of Care Handoff Completed per policy Notes Mental Status: alert / awake / arousable Patient Amnestic to Procedure: Yes Nausea / Vomiting: adequately controlled Pain: adequately controlled Airway Patency, RR, SpO2: stable & adequate BP & HR: stable & adequate Hydration State: stable & adequate Anesthetic Complications: no major complications apparent
[2020-06-15] MEDS ORDERED: Nursing to Pharmacy Communication SCH (12:00)
--- NOTE | 2020-06-15 18:57 | Hospitalist Progress Note ---
Date of Service June 15, 2020 Assessment & Plan (1) Abscess of right thigh: Failed outpatient treatment with Bactrim Now status post I&D by general surgery on 06/15 Wound culture Gram stain with gram-positive cocci, await culture results -Continue IV Zosyn and also added on IV daptomycin -Pain control as needed Tylenol as needed for fevers Appreciate general surgery consultation (2) Obstructive sleep apnea: Continue his own CPAP from home (3) Prediabetes: Patient's recent A1c was 6.1 currently on no medication (4) Hypertension: Blood pressures are controlled -Continue home aspirin, hydrochlorothiazide, irbesartan (5) Hyperlipemia: Continue atorvastatin (6) DVT prophylaxis: SCDs Disposition-continued stay, possible discharge home tomorrow on Bactrim if okay with general surgery Admission and Anticipated Discharge Date Admission Date: June 14, 2020 Subjective Patient feeling much better status post incision and drainage of thigh abscess today. Denies chest pain or shortness of breath. No nausea. He is tolerating p.o. Review of Systems Review of Systems: All systems reviewed & are unremarkable except as noted in HPI & below Physical Exam Constitutional: WD/WN, vitals as above Eyes: + anicteric sclerae Neck: trachea midline, no thyromegaly Respiratory: normal respiratory effort, lungs clear to auscultation Cardiovascular: RRR, no murmur, no edema Chest (Breasts): Chest: normal inspection of chest Gastrointestinal (Abdomen): normal bowel sounds, soft, nontender, no hepatosplenomegaly Musculoskeletal: Extremities: + extremities abnormal to inspection (Right upper thigh with dressing and bandage in place, no erythema noted around the dressing), no cyanosis and no clubbing Skin: no rashes, warm and dry Neurologic: moves all extremities and awake; no focal motor deficits Psychiatric: A+Ox3, euthymic affect Lymphatic: no lymphedema Results & Data Results & Data ([facility]) Vital Signs (Past 12 Hours) Vital Signs Temp Pulse Pulse Resp BP Pulse Ox 06/15/20 13:09 36.6 C 75 18 132/77 97 06/15/20 12:08 36.6 C 69 18 135/78 95 06/15/20 11:10 36.6 C 68 18 148/82 H 96 06/15/20 10:37 36.6 C 65 16 134/76 95 06/15/20 10:10 36.6 C 72 18 138/75 95 06/15/20 09:45 67 20 133/81 97 06/15/20 09:38 36.4 C L 77 18 125/62 97 06/15/20 08:09 36.8 C 68 18 146/82 H 94 Laboratory Results 06/15/20 06/15/20 06/15/20 Range/Units Unknown 06:00 06:00 WBC 6.22 (4.8-10.8) K/uL RBC 4.51 L (4.7-6.1) M/uL Hgb 13.2 L (14.0-18.0) g/dL Hct 41.2 L (42-52) % MCV 91.4 (80-100) fL MCH 29.3 (25-34) pg MCHC 32.0 (32-36) g/dL RDW Std Deviation 47.4 H (36.4-46.3) fL RDW Coeff of Nelson 14.0 (11.5-14.5) % Plt Count 199 (130-400) K/uL MPV 9.3 (7.4-10.4) fL Sodium 139 (136-145) mmol/L Potassium 4.0 (3.5-5.1) mmol/L Chloride 107 (98-107) mmol/L Carbon Dioxide 27 (21-32) mmol/L Anion Gap 5.0 (3-11) BUN 13 (7-18) mg/dl Creatinine 1.16 (0.6-1.4) mg/dl Est Cr Clr Drug Dosing 97.8 ml/min Est GFR ( Amer) 79.4 Est GFR (Non-Af Amer) 68.5 BUN/Creatinine Ratio 11.3 (10-20) Glucose 111 H (70-99) mg/dl Calcium 9.4 (8.5-10.1) mg/dl Nasal Screen MRSA (PCR) Negative (Negative) Hepatitis C Ab Screen (Neg) 06/15/20 Range/Units 06:00 WBC (4.8-10.8) K/uL RBC (4.7-6.1) M/uL Hgb (14.0-18.0) g/dL Hct (42-52) % MCV (80-100) fL MCH (25-34) pg MCHC (32-36) g/dL RDW Std Deviation (36.4-46.3) fL RDW Coeff of Nelson (11.5-14.5) % Plt Count (130-400) K/uL MPV (7.4-10.4) fL Sodium (136-145) mmol/L Potassium (3.5-5.1) mmol/L Chloride (98-107) mmol/L Carbon Dioxide (21-32) mmol/L Anion Gap (3-11) BUN (7-18) mg/dl Creatinine (0.6-1.4) mg/dl Est Cr Clr Drug Dosing ml/min Est GFR ( Amer) Est GFR (Non-Af Amer) BUN/Creatinine Ratio (10-20) Glucose (70-99) mg/dl Calcium (8.5-10.1) mg/dl Nasal Screen MRSA (PCR) (Negative) Hepatitis C Ab Screen Neg (Neg) PG Care Time/CCT Total # of Minutes Spent Total Time Spent with Patient: Total time spent is greater than 50% in coordination of care (as documented) at patient's floor/unit and/or counseling patient: Coding Level of Care Code 18663 Subseq Hosp Care Lvl 2 Diagnoses Abscess of right thigh L02.415 Obstructive sleep apnea G47.33 Prediabetes R73.03 Hypertension I10 Hyperlipemia E78.5 DVT prophylaxis Z29.9
[2020-06-15] MEDS: ATORVASTATIN 20 MG TAB PO SCH (20:57)
[2020-06-15] MEDS ORDERED: SULFAMETHOXAZOLE/TRIMETHOPRIM DS 800/160MG TAB PO SCH (21:00)
[2020-06-16] MEDS: PIPERACILLIN/TAZOBACTAM 4.5 GM in DEXTROSE 5% 100 ML IV SCH ×2 (03:31→11:20)
[2020-06-16 06:19] LABS: Hematocrit (blood only) 40.2 % (42-52); Mean Corpuscular Hemoglobin 29.6 pg (25-34); Mean Corpuscular Hgb Conc 32.3 g/dL (32-36); Mean Corpuscular Volume 91.6 fL (80-100); Mean Platelet Volume 8.7 fL (7.4-10.4); Platelet Count 206 K/uL (130-400); RDW Coefficient of Variation 13.6 % (11.5-14.5); Red Blood Count 4.39 M/uL (4.7-6.1); White Blood Count 5.29 K/uL (4.8-10.8)
[2020-06-16 06:49] LABS: BUN Creatinine Ratio 10.2 (10-20); Calcium 9.6 mg/dl (8.5-10.1); Creatinine Clr Calc Pharmacy 113.4 ml/min; Est GFR (African American) 95.1; Potassium 4.1 mmol/L (3.5-5.1)
[2020-06-16] MEDS: ASPIRIN 81 MG ECTAB PO SCH (07:37)
[2020-06-16] MEDS: CIPROFLOXACIN HCL 0.3% OP SOLN 2.5 ML BTL OP SCH (07:37)
[2020-06-16] MEDS: IRBESARTAN 150 MG TAB PO SCH (07:38)
[2020-06-16] MEDS: hydroCHLOROthiazide 25 MG TAB PO SCH (07:38)
[2020-06-16] MEDS ORDERED: CEROVITE ADV FORMULA TAB PO SCH (09:00)
[2020-06-16] MEDS: DAPTOmycin 400 MG in SYRINGE 0 ML IV SCH (09:26)
--- NOTE | 2020-06-16 10:07 | Surgery Progress Note ---
Date of Service doing better, no pain, no fever, June 16, 2020 Assessment & Plan (1) Abscess of right thigh: pt bis a 59 year-old male who was admitted to hospital for right thigh abscess, IMP: right thigh abscess Plan, I recommend to do I/D right thigh abscess, D/W benefits, risks and alternatives of the surgery, the risks - infection, bleeding, sepsis, pt understood, he agrees with the surgery, I answered all questions, continue iv antibiotic, npo after MN 06/16/2020 10:06AM doing fine, wound culture G+ Cocci pt can be discharged home today, F/U [facility] wound care center on Wednesday for packing change, he can take a shower on 06/18/2020, bactrim 800/160 one pill po bid x 10 days, F/U me 2 weeks, Thanks, Admission and Anticipated Discharge Date Admission Date: June 15, 2020 Review of Systems Constitutional: as per Subjective / HPI obesity Eyes: as per Subjective / HPI Ear, Nose, Mouth, Throat: as per Subjective / HPI Respiratory: obstructive sleep apnea Cardiovascular: as per Subjective / HPI Additional Comments: HTN, hyperlipidemia Gastrointestinal: as per Subjective / HPI colon polyp Genitourinary: + as per Subjective / HPI Musculoskeletal: as per Subjective / HPI Integumentary: as per Subjective / HPI Neurologic: as per Subjective / HPI Psychiatric: as per Subjective / HPI Endocrine: as per Subjective / HPI Hematologic / Lymphatic: as per Subjective / HPI Allergy / Immunological: as per Subjective / HPI Physical Exam Constitutional: WD/WN, vitals as above well developed and well nourished Eyes: PERRL, conjunctivae normal, anicteric sclerae ENMT: external ear and nose normal, oropharynx normal Neck: trachea midline, no thyromegaly Respiratory: normal respiratory effort, lungs clear to auscultation Cardiovascular: RRR, no murmur, no edema Rate/Rhythm: regular rate, regular rhythm and + bradycardic Heart Sounds: normal S1 and normal S2 Gastrointestinal (Abdomen): normal bowel sounds, soft, nontender, no hepatosplenomegaly Musculoskeletal: no cyanosis or clubbing, extremities motor strength 5/5 Skin: the incision site dry, less redness, no tenderness, Neurologic: patellar DTR's 2+ bilat, sensation intact Psychiatric: Orientation: alert and oriented x 3 Results & Data ([facility]) Vital Signs (Past 12 Hours) Vital Signs Temp Pulse Resp BP Pulse Ox 06/16/20 07:27 36.6 C 61 16 151/76 H 94 06/16/20 03:19 36.4 C L 61 16 138/82 96 06/15/20 23:00 36.7 C 62 16 137/77 96
--- NOTE | 2020-06-16 11:56 | Discharge Summary ---
Date of Service June 16, 2020 Admission HPI Per Admitting Provider 59-year-old male who presents the ER for fevers and right groin pain which is been present since Wednesday. The redness and the swelling has been getting significantly worse. Was seen via telehealth and placed on Bactrim. Took Bactrim for 2 days. Fevers as high as 102 Wednesday and . Outpatient covid testing due to travel this is resulted negative on 12 June. The patient denies any trauma to the affected area, he has had no headache, cough runny nose. No loss of taste or smell. No chest pain or shortness of breath. No dysuria urgency or frequency. notes that the redness has been getting significantly worse since this started. Principal Diagnosis Right thigh abscess Discharge Exam Constitutional WD/WN, vitals as above Eyes + anicteric sclerae Neck trachea midline, no thyromegaly Respiratory normal respiratory effort, lungs clear to auscultation Cardiovascular RRR, no murmur, no edema Chest (Breasts) Chest: normal inspection of chest Gastrointestinal (Abdomen) normal bowel sounds, soft, nontender, no hepatosplenomegaly Musculoskeletal Extremities: + extremities abnormal to inspection (Right upper thigh with dressing and bandage in place, no erythema noted around the dressing), no cyanosis and no clubbing Skin no rashes, warm and dry Neurologic moves all extremities and awake; no focal motor deficits Psychiatric A+Ox3, euthymic affect Lymphatic no lymphedema Discharge Data Allergies Allergy/AdvReac Type Severity Reaction Status Date / Time No Known Drug Allergies Allergy . Verified 06/14/20 12:52 Consultations 06/14/20 12:52 ED Decision to Admit Stat 06/14/20 15:20 Consult General Surgery Routine 06/16/20 11:49 [facility] Routine Procedures Performed Operation Date: 06/15/20 11:50 Actual Procedures p Right Thigh Abscess Incision and Drainage - Jessy Gold MD Hospital Course (1) Abscess of right thigh: Failed outpatient treatment with Bactrim Now status post I&D by general surgery on 06/15, doing well, with packing in place Wound culture Gram stain with gram-positive cocci, culture results pending at the time of discharge and will need to be followed up on by PCP. Received IV Zosyn and IV daptomycin We will discharge to home on 10 more days of Bactrim DS 1 tab p.o. twice daily -He will follow-up with wound care clinic hopefully on Wednesday if appointment can be obtained for packing changing of the right thigh abscess along with teaching for home self care with packing changes every other day Follow-up with surgery in 2 weeks (2) Obstructive sleep apnea: Continue his own CPAP from home (3) Prediabetes: Patient's recent A1c was 6.1 currently on no medication -Needs weight loss and low carbohydrate diet Follow-up with PCP (4) Hypertension: Blood pressures are controlled -Continue home aspirin, hydrochlorothiazide, irbesartan (5) Hyperlipemia: Continue atorvastatin (6) DVT prophylaxis: SCDs Disposition-stable for discharge to home Total Time Total Time Spent Total Time Spent (In Minutes): 35 minutes Total Time Includes: Examination of the Patient, Discharge Planning and Medication Reconciliation Discharge Plan Discharge Items Patient Disposition: Home - Self-Care Reason For Visit: GROIN ABSCESS Discharge Diagnosis: Right thigh abscess Condition on Discharge: Good Activity: Resume your previous activity Bathing Comment: May shower on 06/18/2020 Exercise/Sports: Gradually increase as tolerated Driving/Machine Use: Resume 3 days after discharge Non-emergency contact: Primary Care Provider and Surgeon Call non-emergency contact if: you have any medication questions, your symptoms worsen, your pain is not controlled, you have a fever, your wound has increased redness, your wound has increased drainage and your wound pain has increased Follow-up/Referrals: Que Denson MD [Primary Care Provider] - (Please follow-up within 2 weeks.) Jessy Gold MD [Physician] - (Please follow-up in 2 weeks.) Diet: Heart Healthy Addtl Attending Provider Instructions: We will try to arrange for a wound care clinic appointment on Sunday 06/17. The nurse from the hospital should be contacting you with this information. You will need to have the wound repacked at that time and then you can be taught how to do it yourself at home every other day after that. Continue on Bactrim 1 tablet twice daily for 10 days. Pending Studies at Discharge: Yes (Final wound culture result) Stand-Alone [facility] Medications and DC Order Prescriptions: Continued atorvastatin 20 mg tablet 20 mg PO HS Qty: 90 RF: 3 aspirin [Adult Low Dose Aspirin] 81 mg tablet,delayed release (DR/EC) 81 mg PO QAM RF: 0 acetaminophen [Tylenol Extra Strength] 500 mg Tablet 1,000 mg PO Q6H PRN (Reason: Pain) RF: 0 Ocuvite 126-90-8-100 [id number]-lhre-ox-mg Capsule 1 cap PO QAM RF: 0 hydrochlorothiazide 25 mg tablet 25 mg PO QAM RF: 0 irbesartan 300 mg tablet 300 mg PO QAM RF: 0 tadalafil [Cialis] 20 mg tablet 20 mg PO PM PRN (Reason: sexual activity) RF: 0 sulfamethoxazole-trimethoprim [Bactrim DS] 800-160 mg tablet 1 tab PO BID Qty: 10 RF: 0 Discharge Orders: Discharge Order (Routine); Ordered 06/16/20 Ordered By: Arielle Weir Admission Data Admit Date/Time: 06/15/20 19:08 Attending Provider: Arielle Weir Admit Provider: Higinio Cleveland Primary Care Provider: Que Denson Other Providers: Higinio Cleveland ; Jessy Gold Coding Level of Care Code D/C Day Management >30 mins Diagnoses Abscess of right thigh L02.415 Obstructive sleep apnea G47.33 Prediabetes R73.03 Hypertension I10 Hyperlipemia E78.5 DVT prophylaxis Z29.9
== END 2020-06-16 12:57 | disposition home or self-care (01) | DRG 581 ==
LOC: ED 09:48 → 3W 09:48 → SUATTDRO 13:04 → 3W 13:42

== ENCOUNTER 2023-04-29 14:06 | Inpatient (IN) ==
[2023-04-29] MEDS ORDERED: SODIUM CHLORIDE 0.9% 1000ML 1,000 ML IV ONE (14:39)
[2023-04-29] MEDS ORDERED: levoFLOXacin/D5W 750 MG/150 ML BAG IV STA (14:47)
[2023-04-29 15:35] LABS: Basophils # (auto) 0.03 K/uL (0-0.2); Basophils % (auto) 0.7 %; Eosinophils % (auto) 2.3 %; Hematocrit (blood only) 41.9 % (42.0-52.0); Hemoglobin 14.1 g/dl (14.0-18.0); Immature Granulocytes # (auto) 0.01 K/uL (0.01-0.20); Immature Granulocytes % (auto) 0.2 %; Lymphocytes # (auto) 0.98 K/uL (1.2-3.4); Lymphocytes % (auto) 22.3 %; Mean Corpuscular Hgb Conc 33.7 g/dL (32.0-36.0); Mean Corpuscular Volume 89.1 fL (80.0-100.0); Mean Platelet Volume 8.8 fL (9.4-12.4); Monocytes # (auto) 0.26 K/uL (0.11-0.59); Monocytes % (auto) 5.9 %; Neutrophils # (auto) 3.02 K/uL (1.40-6.50); Neutrophils % (auto) 68.6 %; Platelet Count 221 K/uL (130-400); RDW Coefficient of Variation 14.1 % (11.5-14.5); RDW Standard Deviation 45.5 fL (36.4-46.3)
--- NOTE | 2023-04-29 15:48 | XRay Report ---
XR foot RT min 3V routine HISTORY: 62 years-old Male redness, swelling, struck on FB in last acute pain and swelling the right foot COMPARISON: None TECHNIQUE: 3 views of the right foot FINDINGS: Osteoarthritis, moderate within the fifth PIP joint. Moderate sized calcaneal enthesophytes. Soft tis shanna injury of the plantar midfoot. Dystrophic calcifications within the Achilles tendon. Mild dorsal soft tissue swelling of the forefoot. No acute fracture, dislocation or opaque foreign body. IMPRESSION: 1. Soft tissue swelling without acute osseous abnormality. 2. Osteoarthritis as above. 3. Dystrophic calcifications of the Achilles tendon. 4. Soft tissue ulcer of the plantar midfoot. ACT 112: Negative or not required by law. The above report was generated using voice recognition software. It may contain grammatical, syntax o r spelling errors. Electronically signed by: Barron Leonard M.D. 04/29/2023 3:46 PM
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
[2023-04-29 16:59] LABS: Alanine Aminotransferase 39 U/L (7-52); Albumin Globulin Ratio 1.7 (0.9-2); Albumin Level 4.3 gm/dl (3.4-5.0); Alkaline Phosphatase 81 U/L (34-104); Anion Gap 8 (3-11); Aspartate Aminotransferase 29 U/L (13-39); BUN Creatinine Ratio 14.9 (10-20); Bilirubin,Total 0.5 mg/dl (0.2-1.0); Blood Urea Nitrogen 15 mg/dl (6-23); Calcium 8.8 mg/dl (8.6-10.3); Carbon Dioxide 25 mmol/L (21-32); Chloride 104 mmol/L (98-107); Est GFR (Non-African American) 79.3 ml/min; Globulin 2.5 gm/dl (2.5-4.0); Glucose 124 mg/dl (70-99(Fasting)); Potassium 3.5 mmol/L (3.5-5.1); Sodium 137 mmol/L (136-145); Total Protein 6.8 gm/dl (6.0-8.3)
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
[2023-04-29] MEDS ORDERED: PIPERACILLIN/TAZOBACTAM 4.5 GM/120 ML BAG IV ONE (18:15)
[2023-04-29] MEDS: DAPTOmycin 400 MG in SYRINGE 0 ML IV SCH (19:10)
[2023-04-29] MEDS: PIPERACILLIN/TAZOBACTAM 4.5 GM in DEXTROSE 5% 100 ML IV SCH (21:39)
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
[2023-04-30] MEDS: PIPERACILLIN/TAZOBACTAM 4.5 GM in DEXTROSE 5% 100 ML IV SCH ×3 (05:50→21:37)
[2023-04-30] MEDS: amLODIPine BESYLATE 5 MG TAB PO SCH (08:40)
[2023-04-30] MEDS: ASPIRIN 81 MG ECTAB PO SCH (08:41)
[2023-04-30] MEDS: hydroCHLOROthiazide 25 MG TAB PO SCH (08:41)
[2023-04-30] MEDS: ENOXAPARIN INJ 40 MG/0.4 ML SYR SQ SCH (08:50)
[2023-04-30] MEDS ORDERED: metFORMIN HCL ER 500 MG TABCR PO SCH (09:00)
[2023-04-30] MEDS ORDERED: IRBESARTAN 150 MG TAB PO SCH (09:00)
[2023-04-30] MEDS ORDERED: GLUCOSE 10 TAB/TUBE PO PRN (14:30)
[2023-04-30] MEDS ORDERED: DEXTROSE 50% 50 ML SYRINGE IV PRN (14:30)
[2023-04-30] MEDS ORDERED: GLUCAGON FOR INJ 1 MG VIAL IM PRN (14:30)
[2023-04-30] MEDS ORDERED: GLUCOSE 40% GEL 15 GM TUBE PO PRN (14:30)
[2023-04-30] MEDS ORDERED: CARBOHYDRATES FOR HYPOGLYCEMIA PO PRN (14:30)
[2023-04-30] MEDS: INSULIN ASPART PER UNIT CHARGE SC SCH ×2 (17:21→20:48)
[2023-04-30] MEDS: DAPTOmycin 400 MG in SYRINGE 0 ML IV SCH (17:35)
--- NOTE | 2023-04-30 22:06 | Orthopedic Progress Note ---
Date of Service April 30, 2023 Assessment & Plan (1) Cellulitis of foot: Plan: Patient, seen, evaluated and treated. A thorough evaluation of wound was done in detail. Signs and symptoms of infection have reduced. Reviewed wound cultures awaiting sensitivities. Wound cleansed with Betadine followed by normal saline. Will continue to evaluate with daily dressing changes. Thank you for allowing me to participate in the care of this Patient. Admission and Anticipated Discharge Date Admission Date: April 29, 2023 Subjective Patient seen at bedside resting comfortably. He has no complaints and notes reduction in discomfort. Review of Systems Review of Systems: All systems reviewed & are unremarkable except as noted in Subjective Physical Exam Constitutional: cooperative and comfortable Eyes: normal visual messina by confrontation Neck: trachea midline Cardiovascular: Rate/Rhythm: regular rate and regular rhythm Musculoskeletal: Extremities: extremities normal to inspection Skin: + wound (right foot, wound edges macerated) and + erythema (right foot) Neurologic: moves all extremities (Epicritic sensation intact) Psychiatric: Orientation: alert and oriented x 3 Results & Data Vital Signs (Past 12 Hours) Vital Signs Temp Pulse Resp BP Pulse Ox O2 Del Method 04/30/23 20:49 36.9 C 71 18 144/83 H 95 Room Air 04/30/23 15:24 36.7 C 74 18 122/77 93 Room Air Diagnostic Findings [address], [place] [address] / Director: Yash Hull M.D. Clinical Laboratory Report Name: GARRETT ONEILL Acct: [id number] Status: ADM INOo : 1960 [facility] [place]: 04/29/23 Age: 62 Sex: M Dis Date: Loc: Medical/Surgical/Ortho [address] [place] [address]/Bed: [facility] Spec: [id number] Collected: 04/29/23 Received: 04/29/[address]: Nadja Dickey, PA-C Source: Foot,Right OV Order: Ordered: Surf Wnd Cul/Sm Procedure Result Verified Site Gram Stain Final 04/29/23 Gram Stain Result Rare Epithelial Cells Many WBCs Seen Rare Gram Positive Cocci Surface Wound Culture Preliminary 04/30/23 Organism 1 Gram negative bacilli Quantity Few Sens Sensitivities to Follow Name: GARRETT ONEILL : 1960 PAGE 1 Printed: 04/30/23 8238 END OF REPORT
--- NOTE | 2023-04-30 22:13 | Hospitalist Progress Note ---
Date of Service April 30, 2023 Assessment & Plan (1) Cellulitis of foot: Plan: Failed Augmentin/Bactrim Will therefore cover for pseudomonas with Zosyn Continue MRSA coverage with better sensitivity with daptomycin Non weight bearing right foot Consult podiatry: appreciate input. Awaiting 24 hours of IV antibiotics. (2) Hypertension: Plan: Continue his routine medications (3) Prediabetes: Plan: Continue metformin No need for BSG checks (4) Obstructive sleep apnea: Plan: May use own CPAP (5) Hyperlipemia: Plan: Hold atorvastatin while on daptomycin Plan VTE Prophyalxis - Lovenox 40mg SQ daily Diet - regular Admission and Anticipated Discharge Date Admission Date: April 29, 2023 Subjective 62 yo male reports feeling well. He has no new complaints. Review of Systems Review of Systems: All systems reviewed & are unremarkable except as noted in HPI & below Physical Exam Constitutional: WD/WN, vitals as above Respiratory: normal respiratory effort, lungs clear to auscultation Cardiovascular: RRR, no murmur, no edema Extremities: normal capillary refill; no calf tenderness Gastrointestinal (Abdomen): normal bowel sounds, soft, nontender, no hepatosplenomegaly Psychiatric: A+Ox3, euthymic affect Results & Data Results & Data Vital Signs (Past 12 Hours) Vital Signs Temp Pulse Resp BP Pulse Ox O2 Del Method 04/30/23 20:49 36.9 C 71 18 144/83 H 95 Room Air 04/30/23 15:24 36.7 C 74 18 122/77 93 Room Air PG Care Time/CCT Total # of Minutes Spent Total Time Spent with Patient: Total time spent is greater than 50% in coordination of care (as documented) at patient's floor/unit and/or counseling patient: Coding Level of Care Code 38392 SUB INP/OBS CARE 2/35MIN Diagnoses Cellulitis of foot L03.119 Hypertension I10 Hypertension type: essential hypertension Prediabetes R73.03 Obstructive sleep apnea G47.33 Hyperlipemia E78.2 Hyperlipidemia type: mixed hyperlipidemia (2) Hypertension Hypertension type: essential hypertension Qualified Code(s): I10 - Essential (primary) hypertension (5) Hyperlipemia Hyperlipidemia type: mixed hyperlipidemia Qualified Code(s): E78.2 - Mixed hyperlipidemia
[2023-05-01] MEDS: PIPERACILLIN/TAZOBACTAM 4.5 GM in DEXTROSE 5% 100 ML IV SCH ×3 (05:35→21:37)
[2023-05-01] MEDS: ASPIRIN 81 MG ECTAB PO SCH (08:42)
[2023-05-01] MEDS: amLODIPine BESYLATE 5 MG TAB PO SCH (08:42)
[2023-05-01] MEDS: hydroCHLOROthiazide 25 MG TAB PO SCH (08:43)
[2023-05-01] MEDS: ENOXAPARIN INJ 40 MG/0.4 ML SYR SQ SCH (08:43)
[2023-05-01] MEDS: LOSARTAN POTASSIUM 50 MG TAB PO SCH (08:43)
[2023-05-01] MEDS: INSULIN ASPART PER UNIT CHARGE SC SCH ×4 (08:45→20:48)
[2023-05-01] MEDS: DAPTOmycin 400 MG in SYRINGE 0 ML IV SCH (18:27)
--- NOTE | 2023-05-01 22:36 | Hospitalist Progress Note ---
Date of Service May 01, 2023 Assessment & Plan (1) Cellulitis of foot: Plan: Failed Augmentin/Bactrim Will therefore cover for pseudomonas with Zosyn Continue MRSA coverage with better sensitivity with daptomycin Non weight bearing right foot Consult podiatry: appreciate input.continue antibiotics overnight given improvement with IV antibiotics, only different bacteria coverage would be pseudomonas. will likely need to cover for MRSA/ pseudomonas for outpatient regimen. Patient and family updated. (2) Hypertension: Plan: Continue his routine medications (3) Prediabetes: Plan: Continue metformin No need for BSG checks (4) Obstructive sleep apnea: Plan: May use own CPAP (5) Hyperlipemia: Plan: Hold atorvastatin while on daptomycin Plan VTE Prophyalxis - Lovenox 40mg SQ daily Diet - regular Admission and Anticipated Discharge Date Admission Date: May 01, 2023 Subjective 62 yo male reports feeling much better. Patient reports no new symptoms. Review of Systems Review of Systems: All systems reviewed & are unremarkable except as noted in HPI & below Physical Exam Constitutional: WD/WN, vitals as above Respiratory: normal respiratory effort, lungs clear to auscultation Cardiovascular: RRR, no murmur, no edema Extremities: normal capillary refill; no calf tenderness Gastrointestinal (Abdomen): normal bowel sounds, soft, nontender, no hepatosplenomegaly Musculoskeletal: right foot: dressing removed. mild drainage noted. erythema improved. Psychiatric: A+Ox3, euthymic affect Results & Data Results & Data Vital Signs (Past 12 Hours) Vital Signs Temp Pulse Resp BP Pulse Ox O2 Del Method 05/01/23 20:07 36.4 C 74 16 137/76 97 Room Air 05/01/23 16:23 36.6 C 71 18 145/80 H 94 Room Air PG Care Time/CCT Total # of Minutes Spent Total Time Spent with Patient: Total time spent is greater than 50% in coordination of care (as documented) at patient's floor/unit and/or counseling patient: Coding Level of Care Code 68075 SUB INP/OBS CARE 3/50MIN Diagnoses Cellulitis of foot L03.119 Hypertension I10 Hypertension type: essential hypertension Prediabetes R73.03 Obstructive sleep apnea G47.33 Hyperlipemia E78.2 Hyperlipidemia type: mixed hyperlipidemia Time Spent (min) 50 (2) Hypertension Hypertension type: essential hypertension Qualified Code(s): I10 - Essential (primary) hypertension (5) Hyperlipemia Hyperlipidemia type: mixed hyperlipidemia Qualified Code(s): E78.2 - Mixed hyperlipidemia
[2023-05-02] MEDS: PIPERACILLIN/TAZOBACTAM 4.5 GM in DEXTROSE 5% 100 ML IV SCH (05:44)
[2023-05-02 07:08] LABS: Hematocrit (blood only) 42.4 % (42.0-52.0); Hemoglobin 14.3 g/dl (14.0-18.0); Mean Corpuscular Hemoglobin 29.6 pg (25.0-34.0); Mean Corpuscular Hgb Conc 33.7 g/dL (32.0-36.0); Mean Corpuscular Volume 87.8 fL (80.0-100.0); Mean Platelet Volume 8.5 fL (9.4-12.4); Platelet Count 210 K/uL (130-400); RDW Coefficient of Variation 13.5 % (11.5-14.5); RDW Standard Deviation 43.7 fL (36.4-46.3); Red Blood Count 4.83 M/uL (4.70-6.10); White Blood Count 4.98 K/ul (4.8-10.8)
[2023-05-02 07:22] LABS: BUN Creatinine Ratio 16.1 (10-20); C Reactive Protein 1.31 mg/dl (0-0.5); Calcium 9.5 mg/dl (8.6-10.3); Creatinine Clr Calc Pharmacy 116.1 ml/min; Est GFR (African American) 101.6 ml/min; Est GFR (Non-African American) 87.7 ml/min; Magnesium 2.1 mg/dl (1.7-2.4); Potassium 3.7 mmol/L (3.5-5.1)
--- NOTE | 2023-05-02 08:49 | Orthopedic Progress Note ---
Date of Service May 01, 2023 Assessment & Plan (1) Cellulitis of foot: Plan: Patient, seen, evaluated and treated. A thorough evaluation of wound was done in detail. Signs and symptoms of infection have reduced significantly. Reviewed wound cultures and sensitivities. Wound cleansed with Betadine followed by normal saline. Dry Sterile dressing applied. Discussed discharge on Augmenting and Doxy. Will continue to evaluate with daily dressing changes. Thank you for allowing me to participate in the care of this Patient. Admission and Anticipated Discharge Date Admission Date: May 01, 2023 Subjective Patient is a 62 yo male who is seen at bedside resting comfortably. Patient reports feeling well. He has no new complaints. Review of Systems Review of Systems: All systems reviewed & are unremarkable except as noted in Subjective Physical Exam Constitutional: cooperative and comfortable Eyes: normal visual messina by confrontation Neck: trachea midline Cardiovascular: Rate/Rhythm: regular rate and regular rhythm Musculoskeletal: Extremities: extremities normal to inspection Skin: + wound (right foot, wound edges macerated) and + erythema (right foot) Neurologic: moves all extremities (Epicritic sensation intact) Psychiatric: Orientation: alert and oriented x 3 Results & Data Vital Signs (Past 12 Hours) Vital Signs Temp Pulse Resp BP Pulse Ox O2 Del Method 05/02/23 07:08 36.6 C 67 18 148/91 H 93 Room Air
[2023-05-02] MEDS ORDERED: ADVANCED PROBIOTIC 1250 MG CAPSULE PO SCH (09:00)
[2023-05-02] MEDS: INSULIN ASPART PER UNIT CHARGE SC SCH ×2 (09:42→12:38)
[2023-05-02] MEDS: LOSARTAN POTASSIUM 50 MG TAB PO SCH (09:44)
[2023-05-02] MEDS: ASPIRIN 81 MG ECTAB PO SCH (09:44)
[2023-05-02] MEDS: amLODIPine BESYLATE 5 MG TAB PO SCH (09:44)
[2023-05-02] MEDS: hydroCHLOROthiazide 25 MG TAB PO SCH (09:44)
[2023-05-02] MEDS: ENOXAPARIN INJ 40 MG/0.4 ML SYR SQ SCH (09:44)
[2023-05-02] MEDS ORDERED: CIPROFLOXACIN 250 MG TAB PO SCH (11:00)
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
[2023-05-02] MEDS ORDERED: metroNIDAZOLE 500 MG TAB PO SCH (14:00)
[2023-05-02] MEDS ORDERED: DOXYCYCLINE HYCLATE 100 MG CAP PO SCH (21:00)
== END 2023-05-02 13:45 | disposition home or self-care (01) | DRG 603 ==
LOC: 3W 14:06 → ED 14:06 → SUATTDRO 17:52 → 3W 19:55